=== PATIENT | male | born 1975 | race Caucasian/White ===

== ENCOUNTER → 2022-11-16 | Outpatient (CLI) | payer BC, OTHER ==
[~2022-11-16] MED LIST: DICY10CA26 PO; OXYC-12 PO
--- NOTE | 2022-11-16 16:34 | Diagnostic Imaging Report ---
INDICATION: Right wrist pain. TIME OF EXAM: 12:02 PM. TECHNIQUE: Three views of the right wrist were obtained. FINDINGS: The distal radius and ulna appear to be intact. The carpus appears intact. The metacarpals are unremarkable. No fractures are seen. IMPRESSION: No acute bony abnormality is detected. Dictated by: Dictated on workstation # [id number]
== END ==
LOC: RAD 11:37
PROVIDERS: ATTEND Internal Medicine
DX: M25.531 Pain in right wrist (principal)
CPT/HCPCS: 73110